=== PATIENT | male | born 1975 | race Caucasian/White ===

== ENCOUNTER 2022-06-01 18:54 | Emergency (ER) | payer SELFPAY ==
[2022-06-01] MEDS ORDERED: lidocaine 1% 20 ML MDV SUBQ ONE (18:57)
--- NOTE | 2022-06-01 19:02 | ED Physician Documentation ---
History of Present Illness - Stated complaint Stated Complaint: R MIDDLE FINGER LAC - History obtained from History obtained from: Patient - Additonal information Additional information: This is a right-handed gentleman who is up-to-date on tetanus who cut his right middle finger on metal flashing while working on a chicken coop at home just prior to arrival. Review of Systems Constitutional: reports: Reviewed and negative Ears: reports: Reviewed and negative Nose: reports: Reviewed and negative Throat: reports: Reviewed and negative PD PAST MEDICAL HISTORY - Allergies Allergies/Adverse Reactions: Allergies Allergy/AdvReac Type Severity Reaction Status Date / Time No Known Drug Allergies Allergy Verified 06/01/22 19:02 PD ED PE NORMAL - Vitals Vital signs reviewed: Yes - General General: Alert and oriented X 3, No acute distress - Extremities Extremities: Other (There is a slightly greater than 1 cm laceration on the dorsum of the right middle finger at the level of the PIP over on the radial side a bit. Normal distal neurovascular status. Good strength in extension.) - Neuro Neuro: Alert and oriented X 3, Normal speech Results - Vitals Vitals: Vital Signs - 24 hr 06/01/22 19:00 Temperature 37.2 C Heart Rate 78 Respiratory 16 Rate Blood Pressure 170/89 H O2 Saturation 99 Oxygen O2 Source Room air Procedures - Laceration (location) Right middle finger Length in cm: 1.5 Wound type: Curved Neurovascular status: Sensory intact, Motor intact, Vascular intact Tendon involvement: Tendon intact Anesthesia: Lidocaine 1% Wound preparation: Irrigated copiously NS Skin layer closure: Nylon, Interrupted, Size #-0 - enter number (4-0), Sutures - enter # (4) Other: Patient tolerated well, No complications, Neurovascular intact, Tetanus UTD - Splint (location) Right middle finger Splint applied by: Tech Type of splint: Metal foam finger splint Other: Patient tolerated well Departure - Departure Disposition: 01 Home, Self Care Clinical Impression: Finger laceration Condition: Good Record reviewed to determine appropriate education?: Yes Instructions: ED Laceration Hand Comments: Come back for any signs of infection which would include: Redness, swelling, drainage, increased pain, or fevers. You can wash it soap and water. Keep it covered and moist with bacitracin ointment which is available over the counter; avoid neosporin. Follow-up with your physician in About 14 days for suture removal. You should wear the splint when you are doing anything active but you can take it off for bathing showering etc.
[2022-06-01 19:24] VITALS: BP 133/74
== END 2022-06-01 19:24 | disposition home or self-care (01) ==
LOC: ED 18:54
DX: S61.212A Laceration without foreign body of right middle finger without damage to nail, initial encounter (principal); W26.8XXA Contact with other sharp object(s), not elsewhere classified, initial encounter; Y93.H3 Activity, building and construction; Y92.72 Chicken coop as the place of occurrence of the external cause
CPT/HCPCS: 12001; 99281